=== PATIENT | male | born 1990 | race Caucasian/White ===

== ENCOUNTER → 2017-04-25 | Outpatient (CLI) | payer BC, OTHER, SELFPAY ==
--- NOTE | 2017-04-25 13:52 | MRI ---
Procedure: MR LUMBAR SPINE WITHOUT IV CONTRAST Exam Date: 04/25/2017 12:00 AM CDT Ordering Provider: GARRY FARRELL Clinical Indication: LUMBAR DISC DISPLACEMENT Comparison: None Technique: Multisequence, multiplanar images of the lumbar spine were obtained without administration of intravenous gadolinium based contrast. 0 cc contrast was given. Findings: Vertebral bodies are normal in height. No malalignment. The conus terminates at mid L1 level, within normal limits. Nerve roots of the cauda equina are unremarkable. L1-L2: Unremarkable. L2-L3: Unremarkable. L3-L4: Mild bilateral facet degeneration. L4-L5: Mild to moderate bilateral facet degeneration. No significant stenosis. L5-S1: Unremarkable. Other: None. Impression: Mild degenerative changes at the L3-L4 and L4-L5 levels. No significant stenosis. Electronically signed by: Nia Trejo MD 04/25/2017 1:51 PM CDT
== END | disposition home or self-care (01) ==
LOC: MRI 12:59
PROVIDERS: ATTEND Family Medicine
DX: M51.27 Other intervertebral disc displacement, lumbosacral region (principal)